=== PATIENT | female | born 1950 | race Caucasian/White ===

== ENCOUNTER 2018-02-23 09:15 | Outpatient (CLI) | payer MEDICARE ==
[2018-02-23] MEDS ORDERED: Lidocaine 2% Jelly 5 ML TUBE ONE (11:11)
[2018-02-23] MEDS ORDERED: Sodium Chloride 0.9% 15 ML NEB ONE ×2 (11:11)
--- NOTE | 2018-02-23 11:19 | PRG ---
DATE OF SERVICE: 02/23/2018 HISTORY: Ms. Shima Abrams is a very pleasant 68-year-old, accompanied by her , who presents to the [facility] for evaluation of ulcerations of the left anterior lower leg. The patient was l ast seen in the Wound Center on 05/20/2016. The patient first developed ulcerations of the lower leg s in 07/1999. The patient states that the largest ulceration of the left anterior lower leg for whic h she is now being seen. It has been present for approximately 2.5-3 months. The patient states debra t she has been dressing the wound with Triple Antibiotic ointment followed by gauze cotton and her sh ort stretch dressings. The patient has no other complaints today. She denies any fever or chills. The patient states that she has had a worsening of her Sjogren's since she was last seen in the Wound Center. She reports no new operations. PAST MEDICAL HISTORY: 1. Lupus. 2. Raynaud's phenomenon. 3. Thrombocytopenia. 4. Lymphedema. 5. Deep venous thrombosis, bilateral. 6. Sjogren's. PAST SURGICAL HISTORY: 1. Splenectomy. 2. Neck surgery x2. 3. Tonsillectomy. 4. Bilateral cataract surgery. MEDICATIONS: 1. Bumex. 2. Plaquenil. 3. Naprosyn. PHYSICAL EXAMINATION: VITAL SIGNS: Temperature 97.4, pulse 78, respirations 18, blood pressure 134/66. EXTREMITIES: Three ulcerations are present over the left anterior lower leg. The largest ulceration measures approximately 2.9 x 4.7 cm. Granulation tissue is present within the wound margins. Necro tic and nonviable tissue present within the wound margins was debrided with an excisional full-thickn ess debridement with the use of a curette. No purulent drainage is associated with any of the wounds . No erythema of the skin surrounding any of the wounds is present. No maceration of the skin of th e periwound of any of the wounds is noted. A posterior tibial pulse is palpable on the left. Edema of the left lower extremity is present on exam today. ASSESSMENT AND PLAN: 1. Chronic venous hypertension with ulcer. Xeroform gauze, ABD, Webril, and 3M Coban 2-layer compre ssion system will be applied to the ulceration today. I will see Ms. Abrams again in 1 week. No an tibiotics will be prescribed today based upon the appearance of the wound. I have explained to the p atient that consideration will need to be given to treatment with a skin substitute such as Hyalomatr ix if the ulceration is still present in 4 weeks. The patient understands and is in agreement with t he preceding treatment plan. 2. Lupus. 3. Raynaud's phenomenon. 4. Thrombocytopenia. 5. Lymphedema tarda. The patient continues to have swelling of her lower extremities, despite the a pplication of short stretch bandages on a daily basis. 6. Deep venous thrombosis. 7. Sjogren's.
== END 2018-02-23 09:16 | disposition home or self-care (01) ==
LOC: WCC 09:15
PROVIDERS: ATTEND Family Medicine
DX: I87.312 Chronic venous hypertension (idiopathic) with ulcer of left lower extremity (principal); L97.929 Non-pressure chronic ulcer of unspecified part of left lower leg with unspecified severity; M32.9 Systemic lupus erythematosus, unspecified; I73.00 Raynaud's syndrome without gangrene; D69.6 Thrombocytopenia, unspecified; I82.409 Acute embolism and thrombosis of unspecified deep veins of unspecified lower extremity; M35.00 Sjogren syndrome, unspecified; I89.0 Lymphedema, not elsewhere classified

== ENCOUNTER 2018-03-02 09:46 | Outpatient (CLI) | payer MEDICARE ==
--- NOTE | 2018-03-02 11:59 | PRG ---
DATE OF SERVICE: 03/02/2018 HISTORY: Ms. Shima Abrams is a very pleasant 68-year-old accompanied by her who presents t o the W[facility] Center for evaluation of ulcerations of the left anterior lower leg. The patient was pre viously seen in the Wound Center in 04/2016. The patient first developed ulcerations of the lower le gs in 07/1999. She stated that the largest ulceration of the left anterior lower leg for which she i s now being seen has been present for approximately 2-3 months. The patient stated that she had been dressing the wound with Triple Antibiotic ointment followed by gauze, cotton and her short stretch d ressings. The patient has no other complaints today. She denies any fever or chills. At the time o f her last visit, the patient reported a worsening of her Sjogren's since she was seen in the Wound C enter in 04/2016. The patient reported no new operations. After being seen in the Wound Center, the ulcerations of the left anterior lower leg were treated with the application of Xeroform gauze, ABD, Webril, and the 3M Coban 2 layer compression system. PHYSICAL EXAMINATION: VITAL SIGNS: Temperature 98.1, pulse 75, respirations 18, blood pressure 148/95. EXTREMITIES: Two ulcerations are present over the left anterior lower leg. The largest ulceration m easures approximately 3.0 x 4.5 cm. The dimensions of this wound at the time of the patient's last v isit were approximately 2.9 x 4.7 cm. Granulation tissue is present within the wound margins. Necro tic and nonviable tissue present within the wound margins was debrided with an excisional full-thickn ess debridement. No purulent drainage is associated with either wound. No erythema of the skin surr ounding either wound is present. No maceration of the skin of the periwound of either wound is noted . Less edema of the left foot and lower leg is present on exam today than at the time of the patient 's last visit. Circumferences of the right lower extremity at the ankle, calf and knee are 31 cm, 42 cm, and 50 cm. Circumferences of the left lower extremity at the ankle, calf and knee are 29 cm, 34 .25 cm, and 36 cm. ASSESSMENT AND PLAN: 1. Chronic venous hypertension with ulcers. Xeroform gauze, ABD, Webril, and the 3M Coban 2-layer c ompression system will be applied to the ulcerations today. I will see Ms. Abrams again in one week . 2. Lupus. 3. Raynaud's phenomenon. 4. Thrombocytopenia. 5. Lymphedema tarda. The patient continues to have swelling of her lower extremities, despite the a pplication of short stretch bandages on a daily basis and elevation. Arrangements will be made for t he initiation of in-home lymphedema therapy with a pneumatic pump. 6. Deep venous thrombosis. 7. Sjogren's.
[2018-03-02] MEDS ORDERED: Sodium Chloride 0.9% 15 ML NEB ONE (12:00)
[2018-03-02] MEDS ORDERED: Lidocaine 2% Jelly 5 ML TUBE ONE (12:00)
== END 2018-03-02 09:47 | disposition home or self-care (01) ==
LOC: WCC 09:46
PROVIDERS: ATTEND Family Medicine
DX: I87.302 Chronic venous hypertension (idiopathic) without complications of left lower extremity (principal); L97.929 Non-pressure chronic ulcer of unspecified part of left lower leg with unspecified severity; M32.9 Systemic lupus erythematosus, unspecified; I73.00 Raynaud's syndrome without gangrene; D69.6 Thrombocytopenia, unspecified; I89.0 Lymphedema, not elsewhere classified; M35.00 Sjogren syndrome, unspecified; M79.89 Other specified soft tissue disorders; I82.402 Acute embolism and thrombosis of unspecified deep veins of left lower extremity
CPT/HCPCS: A4218

== ENCOUNTER 2018-03-09 12:41 | Outpatient (CLI) | payer MEDICARE ==
[~2018-03-09 12:41] MED LIST: Lidocaine 2% Jelly 5 ML TUBE ONE; Sodium Chloride 0.9% 15 ML NEB ONE
--- NOTE | 2018-03-09 14:04 | PRG ---
DATE OF SERVICE: 03/09/2018 HISTORY: Ms. Shima Abrams is a very pleasant 68-year-old accompanied by her who presents t o the Wound Center for evaluation of ulcerations of the left anterior lower leg. The patient was pre viously seen in the Wound Center in 04/2016. The patient first developed ulcerations of the lower le gs in 07/1999. She stated that the largest ulceration of the left anterior lower leg for which she i s now being seeing has been present for approximately 2-3 months. The patient stated that she had be en dressing the wound with Triple Antibiotic ointment followed by gauze, cotton and her short stretch dressings. The patient has no other complaints today. She denies any fever or chills. The patient recently reported a worsening of her Sjogren's since she was seen in the Wound Center in 04/2016. T he patient reported no new operations. After being seen in the Wound Center, the ulcerations of the left anterior lower leg were treated with the application of Xeroform gauze, ABD, Webril, and 3M Jonathan n 2 layer compression system. PHYSICAL EXAMINATION: VITAL SIGNS: Temperature 97.9, pulse 73, respirations 18, blood pressure 148/66. EXTREMITIES: Two ulcerations are present over the left anterior lower leg. The largest ulceration m easures approximately 4.5 x 3.0 cm. The dimensions of the wound at the time of the patient's last vi sit were also approximately 3.0 x 4.5 cm. Granulation tissue is present within the wound margins. N ecrotic and nonviable tissue present within the wound margins was debrided with an excisional full-th ickness debridement. No purulent drainage is associated with either wound. No erythema of the skin surrounding either wound is present. No maceration of the skin of the periwound of either wound is n oted. Again, less edema of the left foot and lower leg is present on exam today than at the time of the patient's last visit. ASSESSMENT AND PLAN: 1. Chronic venous hypertension with ulcers. Mohoeliseo, 4 x 4s, ABD, Webril, and 3M Coban 2-layer co mpression system will be applied to the ulcerations today. I will see Ms. Abrams again in one week. 2. Lupus. 3. Raynaud's phenomenon. 4. Thrombocytopenia. 5. Lymphedema tarda. The patient continues to have swelling of her lower extremities, despite the a pplication of short stretch bandages on a daily basis and elevation. Arrangements will be made for t he initiation of in-home lymphedema therapy with a pneumatic pump. 6. Deep venous thrombosis. 7. Sjogren's.
== END 2018-03-09 12:42 | disposition home or self-care (01) ==
LOC: WCC 12:41
PROVIDERS: ATTEND Family Medicine
DX: I87.312 Chronic venous hypertension (idiopathic) with ulcer of left lower extremity (principal); L97.929 Non-pressure chronic ulcer of unspecified part of left lower leg with unspecified severity; I89.0 Lymphedema, not elsewhere classified; M35.00 Sjogren syndrome, unspecified; I82.409 Acute embolism and thrombosis of unspecified deep veins of unspecified lower extremity; M32.9 Systemic lupus erythematosus, unspecified; I73.00 Raynaud's syndrome without gangrene
CPT/HCPCS: 11042

== ENCOUNTER 2018-03-16 08:30 | Outpatient (CLI) | payer MEDICARE ==
--- NOTE | 2018-03-16 09:25 | PRG ---
DATE OF SERVICE: 03/16/2018 HISTORY: Ms. Shima Abrams is a very pleasant 68-year-old accompanied by her who presents t o the W[facility] Center for evaluation of ulcerations of the left anterior lower leg. The patient was pre viously seen in the Wound Center in 04/2016. The patient first developed ulcerations of the lower le gs in 07/1999. She stated that the largest ulceration of the left anterior lower leg for which she i s now being seen has been present for approximately 2-3 months. The patient stated that she had been dressing the wound with Triple Antibiotic ointment followed by gauze, cotton and her short stretch d ressings. The patient has no complaints today. She denies any fever or chills. The patient recentl y reported worsening of her Sjogren's since she was seen in the Wound Center in 04/2016. The patient reported no new operations. After being seen in the Wound Center, the ulcerations of the left anter ior lower leg were treated with the application of Xeroform gauze, ABD, Webril, and 3M Coban 2 layer compression system. At the time of the patient's last visit, Medihoney was applied to both ulceratio ns. PHYSICAL EXAMINATION: VITAL SIGNS: Temperature 97.7, pulse 80, respirations 17, blood pressure 129/62. EXTREMITIES: Two ulcerations are present over the left anterior lower leg. The largest ulceration m easures approximately 4.8 x 2.8 cm. The dimensions of the wound at the time of the patient's last vi sit were approximately 4.5 x 3.0 cm. Granulation tissue is present within the wound margins. Necrot ic and nonviable tissue present within the wound margins was debrided with an excisional full-thickne ss debridement with the use of a curette. No purulent drainage is associated with either wound. No erythema of the skin surrounding either wound is present. No maceration of the skin of the periwound of either wound is noted. Less edema of the left foot and lower leg is present on exam today than a t the time of the patient's initial presentation to the Wound Center. ASSESSMENT AND PLAN: 1. Chronic venous hypertension with ulcers. Medihoney, 4 x 4s, ABD, Webril, and 3M Coban 2-layer co mpression system will be applied to the ulcerations today. I will see Ms. Abrams again in one week. 2. Lupus. 3. Raynaud's phenomenon. 4. Thrombocytopenia. 5. Lymphedema tarda. The patient continues to have swelling of her lower extremities, despite the a pplication of short stretch bandages on a daily basis and elevation. Arrangements will be made for t he initiation of in-home lymphedema therapy with a pneumatic pump. 6. Deep venous thrombosis. 7. Sjogren's.
== END 2018-03-16 08:31 | disposition home or self-care (01) ==
LOC: WCC 08:30
PROVIDERS: ATTEND Family Medicine
DX: I87.313 Chronic venous hypertension (idiopathic) with ulcer of bilateral lower extremity (principal); D69.6 Thrombocytopenia, unspecified; I73.00 Raynaud's syndrome without gangrene; I89.0 Lymphedema, not elsewhere classified; I82.409 Acute embolism and thrombosis of unspecified deep veins of unspecified lower extremity; M35.00 Sjogren syndrome, unspecified
CPT/HCPCS: 11042

== ENCOUNTER 2018-03-23 10:37 | Outpatient (CLI) | payer MEDICARE ==
--- NOTE | 2018-03-23 12:38 | PRG ---
DATE OF SERVICE: 03/23/2018 HISTORY: Ms. Shima Abrams is a very pleasant 68-year-old accompanied by her who presents t o the Wound Center for evaluation of ulcerations of the left anterior lower leg. The patient was pre viously seen in the Wound Center in 04/2016. The patient first developed ulcerations of the lower le gs in 07/1999. She stated that the largest ulceration of the left anterior lower leg for which she i s now has been present for approximately 2-3 months. The patient stated that she had been dressing t he wound with Triple Antibiotic ointment followed by gauze cotton and her short stretch dressings liz or to being seen in the Wound Center. The patient has no complaints today. She denies any fever or chills. The patient recently reported worsening of her Sjogren's since she was seen [facility] in 04/2016. The patient reported no new operations. After being seen in the Wound Center, the u lcerations of the left anterior lower leg were treated with the application of Xeroform gauze, ABD, W ebril, and 3M Coban 2 layer compression system. More recently, the patient has received a trial of Adela oconnor in conjunction with compression. PHYSICAL EXAMINATION: VITAL SIGNS: Temperature 97.7, pulse 75, respirations 19, blood pressure 129/61. EXTREMITIES: Two ulcerations are present over the left anterior lower leg. The largest ulceration m easures approximately 5.1 x 3.6 cm. The dimensions of the wound at the time of the patient's last vi sit were approximately 4.8 x 2.8 cm. Granulation granulation tissue is present within the margins of each wound. Necrotic and nonviable tissue present within the margins of each wound was debrided wit h an excisional full-thickness debridement with the use of a curette. No purulent drainage is associ ated with either wound. No erythema of the skin surrounding either wound is present. No maceration of the skin of the periwound of either wound is noted. No significant edema of the left foot or lowe r leg is appreciated on exam today. Hilar matrix was applied to the wound bed of each ulceration fol lowed by Adaptic, ABD, Webril, and 3M Coban 2 layer compression system. Prior to application of Hyal omatrix to the wound bed of each ulceration, the silicone layer was fenestrated with the use of a sca lpel. The Hyalomatrix was applied to each ulceration with the silicone layer facing outwards from th e ulcerations. ASSESSMENT AND PLAN: 1. Chronic venous hypertension with ulcers, Hyalomatrix was applied to the wound bed of each ulcerat ion today. I will see Ms. Abrams again in one week. 2. Lupus. 3. Raynaud's phenomenon. 4. Thrombocytopenia. 5. Lymphedema tarda. The patient continues to have swelling of her right lower extremity despite th e application of short stretch bandages on a daily basis and elevation. Arrangements will continue f or the initiation of in-home lymphedema therapy with a pneumatic pump. 6. Deep venous thrombosis. 7. Sjogren's.
[2018-03-23] MEDS ORDERED: Sodium Chloride 0.9% 15 ML NEB ONE (15:55)
[2018-03-23] MEDS ORDERED: Lidocaine 2% Jelly 30 GM TUBE ONE (15:55)
== END 2018-03-23 10:38 | disposition home or self-care (01) ==
LOC: WCC 10:37
PROVIDERS: ATTEND Family Medicine
DX: I87.312 Chronic venous hypertension (idiopathic) with ulcer of left lower extremity (principal); L97.829 Non-pressure chronic ulcer of other part of left lower leg with unspecified severity; I73.00 Raynaud's syndrome without gangrene; D69.6 Thrombocytopenia, unspecified; I89.0 Lymphedema, not elsewhere classified; M79.89 Other specified soft tissue disorders; I82.409 Acute embolism and thrombosis of unspecified deep veins of unspecified lower extremity; M35.00 Sjogren syndrome, unspecified
CPT/HCPCS: 97139; C5271; Q4117; A4218

== ENCOUNTER 2018-03-30 13:18 | Outpatient (CLI) | payer MEDICARE ==
[~2018-03-30 13:18] MED LIST changes: -Lidocaine 2% Jelly 5 ML TUBE ONE
--- NOTE | 2018-03-30 14:45 | PRG ---
DATE OF SERVICE: 03/30/2018 HISTORY: Ms. Shima Abrams is a very pleasant 68-year-old accompanied by her who presents t o the Wound Center for evaluation of ulcerations of the left anterior lower leg. After being seen in the Wound Center, the ulcerations of the left anterior lower leg were treated with the application o f Xeroform gauze, ABD, Webril, and 3M Coban 2 layer compression system. The patient subsequently rec eived a trial of Medihoney in conjunction with compression. At the time of the patient's last visit, Hyalomatrix was applied to the ulcerations of the left anterior lower leg. PHYSICAL EXAMINATION: VITAL SIGNS: Temperature 98.0, pulse 75, respirations 19, blood pressure 132/61. EXTREMITIES: Two ulcerations are still present over the left anterior lower leg. Erythema of the sk in surrounding both wounds is present and appears to be secondary to irritation from drainage associa kaz with both wounds. Maceration of the skin of the periwound of both wounds is noted. No significa nt edema of the left foot or lower leg is appreciated on exam today. ASSESSMENT AND PLAN: 1. Chronic venous hypertension with ulcers. Both ulcerations will be dressed with ABDs, Webril, and an Rafael bandage. The patient is to perform the preceding dressing changes on a daily basis. I will see Ms. Abrams again in two weeks. 2. Lupus. 3. Raynaud's phenomenon. 4. Thrombocytopenia. 5. Lymphedema tarda. 6. Deep venous thrombosis. 7. Sjogren's.
== END 2018-03-30 13:19 | disposition home or self-care (01) ==
LOC: WCC 13:18
PROVIDERS: ATTEND Family Medicine
DX: I87.312 Chronic venous hypertension (idiopathic) with ulcer of left lower extremity (principal); M32.9 Systemic lupus erythematosus, unspecified; I73.00 Raynaud's syndrome without gangrene; I82.409 Acute embolism and thrombosis of unspecified deep veins of unspecified lower extremity; I89.0 Lymphedema, not elsewhere classified; D69.6 Thrombocytopenia, unspecified; M35.00 Sjogren syndrome, unspecified
CPT/HCPCS: 97602; A4218

== ENCOUNTER 2018-04-13 10:34 | Outpatient (CLI) | payer MEDICARE ==
--- NOTE | 2018-04-13 12:34 | PRG ---
DATE OF SERVICE: 04/13/2018 HISTORY: Ms. Shima Abrams is a very pleasant 68-year-old accompanied by her who presents t o the Wound Center for evaluation of ulcerations of the left anterior lower leg. After being seen in the Wound Center, the ulcerations of the left anterior lower leg were treated with the application o f Xeroform gauze, ABD, Webril, and 3M Coban 2 layer compression system. The patient subsequently rec eived a trial of Medihoney in conjunction with compression. Presently, the patient is receiving sandoval tment with Hyalomatrix. PHYSICAL EXAMINATION: VITAL SIGNS: Temperature 97.6, pulse 68, respirations 17, blood pressure 141/63. EXTREMITIES: Two ulcerations are still present over the left anterior lower leg. The larger ulcerat ion measures approximately 5.9 x 4.2 cm. The smaller ulceration measures approximately 1.9 x 1.9 cm. Granulation tissue is present within the margins of each wound. No purulent drainage is associated with either wound. No erythema of the skin surrounding either wound is appreciated. No maceration of the skin of the periwound of either wound is noted. No significant edema of the left foot or lowe r leg is present on exam today. ASSESSMENT AND PLAN: 1. Chronic venous hypertension with ulcers. The patient is presently receiving treatment with Hyalo matrix. Once granulation tissue covers the entire wound bed of each ulceration Ms. Abrams states sh e will contact the clinic and at this time, consideration will be given to the resumption of treatmen t with Hyalomatrix or a trial of MatriStem sheet. The patient and her understand and are in agreement with the preceding treatment plan. 2. Lupus. 3. Raynaud's phenomenon. 4. Thrombocytopenia. 5. Lymphedema tarda. 6. Deep venous thrombosis. 7. Sjogren's.
[2018-04-13] MEDS ORDERED: Sodium Chloride 0.9% 15 ML NEB ONE (18:00)
[2018-04-13] MEDS ORDERED: Lidocaine 2% Jelly 30 GM TUBE ONE (18:00)
== END 2018-04-13 10:35 | disposition home or self-care (01) ==
LOC: WCC 10:34
PROVIDERS: ATTEND Family Medicine
DX: I87.302 Chronic venous hypertension (idiopathic) without complications of left lower extremity (principal); L97.829 Non-pressure chronic ulcer of other part of left lower leg with unspecified severity; I73.00 Raynaud's syndrome without gangrene; D69.6 Thrombocytopenia, unspecified; I89.0 Lymphedema, not elsewhere classified; I82.409 Acute embolism and thrombosis of unspecified deep veins of unspecified lower extremity; M35.00 Sjogren syndrome, unspecified
CPT/HCPCS: 29581; A4218

== ENCOUNTER 2018-06-19 13:23 | Outpatient (CLI) | payer MEDICARE ==
--- NOTE | 2018-06-19 13:51 | PRG ---
DATE OF SERVICE: 06/19/2018 SUBJECTIVE: Ms. Shima Abrams is a very pleasant 68-year-old accompanied by her , who presents to the Wound Center for evaluation of ulcerations of the left anterior lower leg. For the ulceration, the patient has received treatment with Xeroform gauze, Medihoney, and Hyalomatrix. The patient states that she has been referred to Dr. Cortez and will be seen on 07/10/2018. The patient states that she is presently taking prednisone at a dosage of 10 mg p.o. daily. OBJECTIVE: VITAL SIGNS: Temperature 97.6, pulse 63, respirations 18, and blood pressure 116/56. EXTREMITIES: Two ulcerations are still present over the left anterior lower leg. The larger ulceration measures approximately 6.5 x 4.6 cm. The smaller ulceration measures approximately 0.5 x 0.9 cm. Granulation tissue is present within the margins of each wound. No purulent drainage is associated with either wound. No erythema of the skin surrounding either wound is present. No maceration of the skin of the periwound of either wound is noted. No significant edema of the left foot or lower leg is present on exam today. ASSESSMENT AND PLAN: 1. Chronic venous hypertension with ulcers. As stated above, the patient will be seen by Dr. Cortez on 07/10/2018. After evaluation by Dr. Cortez, arrangements will be made for the resumption of treatment with a bioengineered skin substitute. The patient understands and is in agreement with the preceding treatment plan. 2. Lupus. 3. Raynaud phenomenon. 4. Thrombocytopenia. 5. Lymphedema tarda. 6. Deep venous thrombosis. Job ID: [id number]
== END 2018-06-19 13:24 | disposition home or self-care (01) ==
LOC: WCC 13:23
PROVIDERS: ATTEND Family Medicine
DX: I87.312 Chronic venous hypertension (idiopathic) with ulcer of left lower extremity (principal); L97.929 Non-pressure chronic ulcer of unspecified part of left lower leg with unspecified severity; M32.9 Systemic lupus erythematosus, unspecified; I73.00 Raynaud's syndrome without gangrene; D69.6 Thrombocytopenia, unspecified; I89.0 Lymphedema, not elsewhere classified; I82.409 Acute embolism and thrombosis of unspecified deep veins of unspecified lower extremity
CPT/HCPCS: 97602; A4218

== ENCOUNTER 2018-07-10 13:30 | Outpatient (CLI) | payer MEDICARE ==
--- NOTE | 2018-07-10 15:48 | ULT ---
BILATERAL LOWER EXTREMITY VENOUS DOPPLER: DATE: 07/10/2018. PROVIDED CLINICAL HISTORY: Lymphedema. FINDINGS: Mac scale and color Doppler sonography with spectral analysis was performed of the bilateral common femoral, femoral, popliteal, posterior tibial, greater saphenous, and profunda femoral veins, demonst rating a normal sonographic appearance to each. IMPRESSION: No sonographic evidence for lower extremity deep venous thrombosis. POS: [facility]
== END 2018-07-10 13:31 | disposition home or self-care (01) ==
LOC: SCSULT 13:30
PROVIDERS: ATTEND Internal Medicine Rheumatology
DX: R60.0 Localized edema (principal); Z86.718 Personal history of other venous thrombosis and embolism
CPT/HCPCS: 93970

== ENCOUNTER 2019-02-26 11:42 | Outpatient (CLI) | payer MEDICARE ==
[2019-02-26] MEDS ORDERED: Sodium Chloride 0.9% 15 ML NEB ONE (16:52)
[2019-02-26] MEDS ORDERED: Lidocaine 2% PF 100 mg/5 ml Syringe ONE (16:52)
--- NOTE | 2019-02-26 18:15 | PRG ---
DATE OF SERVICE: 02/26/2019 HISTORY: Ms. Shima Abrams is a very pleasant 69-year-old accompanied by her who presents to the Wound Center for evaluation of an ulceration of the left anterior lower leg. The patient was last seen in the Wound Center on 06/19/2018 for 2 ulcerations of the left anterior lower leg. The patient states that one of the ulcerations healed completely and the ulceration now present has been decreasing in its dimensions. The patient states that she is presently receiving dressing changes of a collagen, specifically Puracol in [facility] for her left anterior lower leg ulceration. The patient states that the ulceration has progressively decreased in its dimensions since she experienced a resolution of her lupus flare. Since the patient's last visit, Ms. Abrams has been seen by Rheumatology in [place] as well as Rheumatology at [facility]. The patient reports, however, that she is no longer seeing either director of orthopedics. PHYSICAL EXAMINATION: VITAL SIGNS: Temperature 97.6, pulse 77, respirations 18, blood pressure 138/76. EXTREMITIES: One ulceration is present over the left anterior lower leg, which measures approximately 3.0 x 6.0 cm. The dimensions of this ulceration at the time of the patient's visit on 06/19/2018 were approximately 6.5 x 4.6 cm. Granulation tissue is present within the wound margins. No purulent drainage is associated with the wound. No cellulitis of the left lower leg is appreciated. No maceration of the skin of the periwound is noted. No significant edema of the left foot or lower leg is present on exam today. ASSESSMENT AND PLAN: 1. Chronic venous hypertension with ulcer. As stated above, the patient is receiving dressing changes of Puracol by Physical Therapy in [place], [place]. These dressing changes will be continued at the present frequency. I have asked the patient to return to clinic should the dimensions of the ulceration failed to decrease in a timely manner with the preceding dressing changes. The patient and her understand and are in agreement with the preceding treatment plan. 2. Lupus. 3. Raynaud phenomenon. 4. Thrombocytopenia. 5. Lymphedema tarda. 6. Deep venous thrombosis. Job ID: [id number]
== END 2019-02-26 11:43 | disposition home or self-care (01) ==
LOC: WCC 11:42
PROVIDERS: ATTEND Family Medicine
DX: I87.332 Chronic venous hypertension (idiopathic) with ulcer and inflammation of left lower extremity (principal); L97.929 Non-pressure chronic ulcer of unspecified part of left lower leg with unspecified severity; I73.00 Raynaud's syndrome without gangrene; D69.6 Thrombocytopenia, unspecified; I82.409 Acute embolism and thrombosis of unspecified deep veins of unspecified lower extremity; I89.0 Lymphedema, not elsewhere classified
CPT/HCPCS: 97602; G0463; 99213; A4218; J2001